=== PATIENT | male | born 1965 | race Caucasian/White ===

== ENCOUNTER 2019-05-14 15:43 | Outpatient (REF) | payer SELFPAY ==
[2019-05-14 17:05] LABS: Chol HDL Ratio 3.78 mg/dL (1.0-5.00); Cholesterol 155 mg/dL (0-200); Glucose 74 mg/dL (65-115); HDL Cholesterol 41 mg/dL (60-100); LDL Cholesterol Calculated 101 mg/dL (50-129); LDL HDL Ratio 2.46 RATIO (0.00-3.22); Triglycerides 64 mg/dL (0-150)
[2019-05-14 19:22] LABS: Estmated Average Glucose 114; Hemoglobin A1C 5.6 % (4.0-6.0)
== END 2019-05-14 15:44 | disposition home or self-care (01) ==
LOC: LAB 15:43
PROVIDERS: Family Provider Nurse Practitioner; PCP Nurse Practitioner; Visit Provider Dermatology
DX: Z13.9 Encounter for screening, unspecified (principal)
CPT/HCPCS: 80061; 82947; 83036

== ENCOUNTER 2019-10-02 14:10 | Outpatient (CLI) | payer OTHER, SELFPAY ==
--- NOTE | 2019-10-02 13:30 | CT_ITS ---
WS: [id number] CT HEAD TECHNIQUE: Noncontrast CT of the head obtained from the skullbase to the vertex. CLINICAL INFORMATION: confusion COMPARISON: None. DLP: 760.[address] scans at [facility] use at least one of these dose optimization techniques: automat ed exposure control; mA and/or kV adjustment per patient size (includes targeted exams where dose is matched to clinical indication); or iterative reconstruction. FINDINGS: No evidence of intracranial hemorrhage or mass effect. Ventricular system and basal cisterns are martin nt. Minimal small vessel changes with mild parenchymal volume loss. No extra-axial fluid collections. No evidence of mass or mass effect. Normal mahoney-white differentiation. Paranasal sinuses and mastoid air cells are well aerated. .Normal visualized soft tissues. CT/CT head wo con* [id number] IMPRESSION: 1. No evidence of intracranial hemorrhage or mass effect. 2. Minimal small vessel changes. Mild parenchymal volume loss. 3. No acute intracranial findings.
== END 2019-10-02 14:11 | disposition home or self-care (01) ==
LOC: RAD 14:19
PROVIDERS: Family Provider Nurse Practitioner; PCP Nurse Practitioner; Visit Provider Nurse Practitioner
DX: R41.0 Disorientation, unspecified (principal)
CPT/HCPCS: 70450

== ENCOUNTER → 2020-08-08 16:01 | Outpatient (BNVA) | payer OTHER, SELFPAY | PROVIDERS: Family Provider Nurse Practitioner; PCP Nurse Practitioner; Visit Provider Nurse Practitioner | DX: R07.9 Chest pain, unspecified (principal) | CPT/HCPCS: 80053; 84484; 85025 ==

== ENCOUNTER → 2020-12-07 16:10 | Outpatient (BNVA) | payer OTHER, SELFPAY | PROVIDERS: Family Provider Nurse Practitioner; PCP Nurse Practitioner; Visit Provider Nurse Practitioner | DX: M06.09 Rheumatoid arthritis without rheumatoid factor, multiple sites (principal); M51.36 Other intervertebral disc degeneration, lumbar region | CPT/HCPCS: 72040; 72072; 72100; 73502; 73523; 73562 ==

== ENCOUNTER → 2021-02-28 07:50 | Outpatient (BNVA) | payer SELFPAY | PROVIDERS: Family Provider Nurse Practitioner; PCP Nurse Practitioner; Visit Provider Dermatology | DX: Z01.89 Encounter for other specified special examinations (principal) ==

== ENCOUNTER → 2021-05-30 08:06 | Outpatient (BNVA) | payer SELFPAY | PROVIDERS: Family Provider Nurse Practitioner; PCP Nurse Practitioner; Visit Provider Dermatology | DX: Z01.89 Encounter for other specified special examinations (principal) ==

== ENCOUNTER → 2022-11-27 08:40 | Outpatient (BNVA) | payer OTHER, SELFPAY | PROVIDERS: Family Provider Nurse Practitioner; PCP Nurse Practitioner; Visit Provider Dermatology | DX: I10 Essential (primary) hypertension (principal); Z12.5 Encounter for screening for malignant neoplasm of prostate | CPT/HCPCS: 80053; 80061; 85025; G0103 ==

== ENCOUNTER → 2023-05-28 07:51 | Outpatient (BNVA) | payer SELFPAY | PROVIDERS: Family Provider Nurse Practitioner; PCP Nurse Practitioner; Visit Provider Dermatology | DX: Z01.89 Encounter for other specified special examinations (principal) ==

== ENCOUNTER → 2023-05-30 17:00 | Outpatient (BNVA) | payer OTHER, SELFPAY | PROVIDERS: Family Provider Nurse Practitioner; PCP Nurse Practitioner; Visit Provider Nurse Practitioner | DX: M06.09 Rheumatoid arthritis without rheumatoid factor, multiple sites (principal) | CPT/HCPCS: 85651; 86140 ==